=== PATIENT | female | born 1965 | race Caucasian/White ===

== ENCOUNTER 2017-01-07 22:42 | Observation (INO) | payer SELFPAY ==
[2017-01-07] MEDS ORDERED: ASPIRIN 81 MG CHEWABLE TABLET PO ONE (23:02)
[2017-01-07 23:03] LABS: BASO % 0.8 % (0-6); EOS % 2.8 % (0-6); GRAN % 43.7 % (47-80); HEMATOCRIT 40.2 % (35.0-47.0); HEMOGLOBIN 13.4 gm/dl (11.6-16.0); MEAN CELL VOLUME 87.8 fl (81-97); MEAN CORPUSCULAR HEMOGLOBIN 29.3 pg (27-33); MEAN CORPUSCULAR HGB CONC 33.3 g/dl (32-36); MEAN PLATELET VOLUME 9.7 fl (7.4-10.4); MONO % 9.7 % (0-9); PLATELET COUNT 277 K/uL (130-400); RED BLOOD COUNT 4.58 M/uL (3.80-5.40); RED CELL DISTRIBUTION WIDTH 12.5 % (11.5-14.5); WHITE BLOOD COUNT W/O DIFF 6.1 K/uL (4.2-12.2)
[2017-01-07] MEDS: NITROGLYCERIN 0.4MG SL TABLET #25 BTL SL PRN ×3 (23:05→23:15)
[2017-01-07 23:14] LABS: BLOOD UREA NITROGEN 7 mg/dL (7-17); CREATINE PHOSPHOKINASE 132 U/L (30-135); CREATININE 0.7 mg/dL (0.52-1.04); EST GLOMERULAR FILTRATION RATE > 60 ml/min; GLUCOSE,RANDOM 87 mg/dL (70-110)
[2017-01-07 23:17] LABS: INR 0.95; PROTHROMBIN TIME (PATIENT) 10.7 SECONDS (9.5-12.1)
[2017-01-07 23:27] LABS: D-DIMER < 0.19 mg/L FEU (0-0.59); TROPONIN I < 0.012 ng/mL (0.00-0.034)
--- NOTE | 2017-01-07 23:41 | Emergency Department Record ---
History of Present Illness - General Chief Complaint: Chest Pain Stated Complaint: CHEST PAIN Time Seen by Provider: 01/07/17 22:52 Source: Patient Mode of Arrival: Wheelchair Limitations: No limitations - History of Present Illness Initial Comments: pt has had intermittant chest pain for the last weeks and then tonight it became constant. it is 3/10, heavy w tingling in l arm. pt has nausea. it has been constant for 2 hours. pt feels sob. pt has no hx of hi chol, no smoking, no hx htn. pts father had a [place] in his 50s. MD Complaint: Chest pain Onset/Timin -: Hour(s) Onset: During rest Pain Location: Substernal Pain Radiation: None Severity: Mild Severity scale (1-10): 3 Quality: Heaviness Consistency: Constant Improves With: Nothing Worsens With: Nothing Context: Other Anginal Symptoms: Other Treatments Prior to Arrival: None - Related Data Home Medications Medication Instructions Recorded Confirmed Last Taken Escitalopram Oxalate [Lexapro] 10 mg PO DAILY 01/07/17 01/07/17 Unknown Lorazepam [Ativan] 1 mg PO ASDIR 01/07/17 01/07/17 Unknown Allergies Allergy/AdvReac Type Severity Reaction Status Date / Time Sulfa (Sulfonamide Allergy RASH Verified 01/07/17 22:53 Antibiotics) Travel Screening - Travel/Exposure Within Last 30 Days Have you traveled within the last 30 days?: No - Travel/Exposure Within Last Year Have you traveled outside the [place] in the last year?: No - Additonal Travel Details Have you been exposed to anyone with a communicable illness?: No - Travel Symptoms Symptom Screening: None Review of Systems Reviewed: No additional complaints except as noted below Constitutional: Reports: As per HPI. Denies: Chills, Fever, Malaise, Night sweats, Weakness, Weight change Eyes: Reports: As per HPI. Denies: Eye discharge, Eye pain, Photophobia, Vision change ENT: Reports: As per HPI. Denies: Congestion, Dental pain, Ear pain, Epistaxis , Hearing loss, Throat pain Respiratory: Reports: As per HPI. Denies: Cough, Dyspnea, Hemoptysis, Stridor, Wheezes Cardiovascular: Reports: As per HPI. Denies: Arrhythmia, Chest pain, Dyspnea on exertion, Edema, Murmurs, Orthopnea, Palpitations, Paroxysmal nocturnal dyspnea, Rheumatic Fever, Syncope Endocrine: Reports: As per HPI. Denies: Fatigue, Heat or cold intolerance, Polydipsia, Polyuria Gastrointestinal: Reports: As per HPI. Denies: Abdominal pain, Constipation, Diarrhea, Hematemesis, Hematochezia, Melena, Nausea, Vomiting Genitourinary: Reports: As per HPI. Denies: Abnormal menses, Discharge, Dyspareunia, Dysuria, Frequency, Hematuria, Incontinence, Retention, Urgency Musculoskeletal: Reports: As per HPI. Denies: Arthralgia, Back pain, Gout, Joint swelling, Myalgia, Neck pain Skin: Reports: As per HPI. Denies: Bruising, Change in color, Change in hair/ nails, Lesions, Pruritus, Rash Neurological: Reports: As per HPI. Denies: Abnormal gait, Confusion, Headache, Numbness, Paresthesias, Seizure, Tingling, Tremors, Vertigo, Weakness Psychiatric: Reports: As per HPI. Denies: Anxiety, Auditory hallucinations, Depression, Homicidal thoughts, Suicidal thoughts, Visual hallucinations Hematological/Lymphatic: Reports: As per HPI. Denies: Anemia, Blood Clots, Easy bleeding, Easy bruising, Swollen glands Past Medical History - SOCIAL HISTORY Smoking Status: Never smoker Alcohol Use: Occassional Alcohol Use Comment: nightly glass of wine. occ beer Drug Use: None - RESPIRATORY Hx Respiratory Disorders: No - CARDIOVASCULAR Hx Cardio Disorders: No - NEURO Hx Neuro Disorders: No - GI Hx GI Disorders: Yes Comment:: has indegestion feeling every night - Hx Genitourinary Disorders: No - ENDOCRINE Hx Endocrine Disorders: No - MUSCULOSKELETAL Hx Musculoskeletal Disorders: No - PSYCH Hx Psych Problems: No - HEMATOLOGY/ONCOLOGY Hx Hematology/Oncology Disorders: No Family Medical History Any Significant Family History?: Yes Family Hx Comment (NOT TO BE USED IN PLACE OF ITEMS BELOW): father of heart attack age 57. breast ca in the family Physical Exam - General General Appearance: Alert, Oriented x3, Cooperative, Mild distress - Head Head exam: Normal inspection - Eye Eye exam: Normal appearance, PERRL, EOMI Pupils: Normal accommodation - ENT ENT exam: Normal exam, Mucous membranes moist, Normal external ear exam, Normal orophraynx, TM's normal bilaterally Ear exam: Normal external inspection. negative: External canal tenderness Nasal Exam: Normal inspection. negative: Discharge, Sinus tenderness Mouth exam: Normal external inspection, Tongue normal Teeth exam: Normal inspection. negative: Dental caries Throat exam: Normal inspection. negative: Tonsillar erythema, Tonsillar exudate - Neck Neck exam: Normal inspection, Full ROM. negative: Tenderness - Respiratory Respiratory exam: Normal lung sounds bilaterally. negative: Respiratory distress - Cardiovascular Cardiovascular Exam: Regular rate, Normal rhythm, Normal heart sounds - GI/Abdominal GI/Abdominal exam: Soft, Normal bowel sounds. negative: Tenderness - Rectal Rectal exam: Deferred - exam: Deferred - Extremities Extremities exam: Normal inspection, Full ROM, Normal capillary refill. negative: Tenderness - Back Back exam: Reports: Normal inspection, Full ROM. 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 ] Respiratory 18 18 Rate Blood Pressure Blood Pressure 129/77 123/73 [Right Arm] Pulse Ox 98 97 Medical Decision Making - Lab Data Result diagrams: 01/07/17 22:40 01/07/17 22:40 Lab Results 01/07/17 01/07/17 01/07/17 Range/Units 22:40 22:40 22:40 WBC 6.1 (4.2-12.2) K/uL RBC 4.58 (3.80-5.40) M/uL Hgb 13.4 (11.6-16.0) gm/dl Hct 40.2 (35.0-47.0) % MCV 87.8 (81-97) fl MCH 29.3 (27-33) pg MCHC 33.3 (32-36) g/dl RDW 12.5 (11.5-14.5) % Plt Count 277 (130-400) K/uL MPV 9.7 (7.4-10.4) fl Gran % 43.7 L (47-80) % Lymphocytes % 43.0 (16-45) % Monocytes % 9.7 H (0-9) % Eosinophils % 2.8 (0-6) % Basophils % 0.8 (0-6) % PT 10.7 (9.5-12.1) SECONDS INR 0.95 APTT 25.90 (24.5-39.1) SECONDS D-Dimer < 0.19 (0-0.59) mg/L FEU Sodium 143 (136-145) mmol/L Potassium 3.3 L (3.5-5.1) mmol/L Chloride 105 (98-107) mmol/L Carbon Dioxide 29.0 (22-30) mmol/L Anion Gap 9.0 (7-16) BUN 7 (7-17) mg/dL Creatinine 0.7 (0.52-1.04) mg/dL Estimated GFR > 60 ml/min Random Glucose 87 (70-110) mg/dL Calcium 9.9 (8.5-10.1) mg/dL Creatine Kinase 132 (30-135) U/L CK-MB (CK-2) 1.0 (0-6) ug/L Myoglobin 22.5 (0.0-61.5) ng/mL Troponin I < 0.012 (0.00-0.034) ng/mL NT-Pro-B Natriuret Pep 74.90 (<125) pg/mL Disposition Disposition: Admit Clinical Impression: Chest pain Qualifiers: Chest pain type: unspecified Qualified Code(s): R07.9 - Chest pain, unspecified Disposition: Still a Patient at [facility] Decision to Admit: Admit from ER Decision to Admit Date: 01/08/17 Decision to Admit Time: 00:38 Forms: Patient Portal Access
[2017-01-08] MEDS ORDERED: TEMAZEPAM 15 MG CAPSULE PO PRN (01:16)
[2017-01-08] MEDS ORDERED: ACETAMINOPHEN 500 MG TABLET PO PRN (01:16)
[2017-01-08] MEDS ORDERED: LORAZEPAM 1 MG PO SCH (01:16)
[2017-01-08 07:30] LABS: LDL CHOLESTEROL/MEASURED 56.4 mg/dL (0-100)
[2017-01-08] MEDS ORDERED: LORAZEPAM 0.5 MG TABLET PO PRN (08:45)
[2017-01-08] MEDS ORDERED: ESCITALOPRAM 10 MG TABLET PO SCH (10:00)
[2017-01-08] MEDS ORDERED: ASPIRIN 325 MG TAB ENTERIC-COATED PO SCH (10:00)
--- NOTE | 2017-01-08 13:22 | RADIOLOGY REPORT ---
EXAM: CHEST, TWO VIEWS HISTORY: PATIENT HAS CENTRAL CHEST PRESSURE AND LEFT SIDED CHEST PAIN. TECHNIQUE: Two views of the chest were provided without comparison examinations. FINDINGS: The cardiomediastinal silhouette is within normal limits for size and contour. The kaela appear unremarkable. There is no radiographic evidence of a focal infiltrate, pleural effusion, or pneumothorax. COPD changes are identified bilaterally. IMPRESSION: COPD CHANGES ARE IDENTIFIED WITHOUT RADIOGRAPHIC EVIDENCE OF AN ACUTE INTRATHORACIC PROCESS. JOB NUMBER: [id number] MTDD
--- NOTE | 2017-01-08 13:30 | History & Physical ---
History of Present Illness - Date of Service Date of Service for History & Physical: 01/08/17 - History of Present Illness Admitting Diagnosis: chest pain History of Present Illness: 51 y/o female with cc chest pain admitted for chest pain r/o MT. Past medical history includes indigestion and depression. Positive family history of CAD, father at age 53 of MT, mother a few years ago, was terminally ill with breast cancer, mother also had hx HTN. Past Surgical History: laproscopy for ovary, left ovary removal Prior to arrival she experienced mid chest discomfort and pressure, left work early and went home to take Prilosec to treat what she felt was indigestion. reports Prilosec helped some of the the chest pressure initially but over the next hour or so chest pressure and pain worsened, radiated to left jaw and neck , left arm felt tingly. She took her BP at home and reports reading as high as 170/? and came to ED. She reports leads a relatively healthy lifestyle. Has never had an episode of chest pain like this before. Denies panic attacks. Drinks a glass of wine per night and an occasional beer with dinner. Has never smoked. She does report depression as she reports she is " a juggler" of many things, depression got worse after the of her children and divorce from their father. Had a hard time sleeping during end of life process with mother and depends on Ativan at night for sleep. 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 She feels her life has become less stressful as she has returned to her previous routine prior to the of her mother. While in the ED BP elevated but asymptomatic. First set of cardiac enzymes negative. EKG NSR with mild atrial enlargement. CXR negative for acute process, + COPD changes bilaterally. Laboratory Results WBC 6.1 K/uL (4.2-12.2) 01/07/17 22:40 RBC 4.58 M/uL (3.80-5.40) 01/07/17 22:40 Hgb 13.4 gm/dl (11.6-16.0) 01/07/17 22:40 Hct 40.2 % (35.0-47.0) 01/07/17 22:40 MCV 87.8 fl (81-97) 01/07/17 22:40 MCH 29.3 pg (27-33) 01/07/17 22:40 MCHC 33.3 g/dl (32-36) 01/07/17 22:40 RDW 12.5 % (11.5-14.5) 01/07/17 22:40 Plt Count 277 K/uL (130-400) 01/07/17 22:40 MPV 9.7 fl (7.4-10.4) 01/07/17 22:40 Gran % 43.7 % (47-80) L 01/07/17 22:40 Lymphocytes % 43.0 % (16-45) 01/07/17 22:40 Monocytes % 9.7 % (0-9) H 01/07/17 22:40 Eosinophils % 2.8 % (0-6) 01/07/17 22:40 Basophils % 0.8 % (0-6) 01/07/17 22:40 PT 10.7 SECONDS (9.5-12.1) 01/07/17 22:40 INR 0.95 01/07/17 22:40 APTT 25.90 SECONDS (24.5-39.1) 01/07/17 22:40 D-Dimer < 0.19 mg/L FEU (0-0.59) 01/07/17 22:40 Sodium 143 mmol/L (136-145) 01/07/17 22:40 Potassium 3.3 mmol/L (3.5-5.1) L 01/07/17 22:40 Chloride 105 mmol/L (98-107) 01/07/17 22:40 Carbon Dioxide 29.0 mmol/L (22-30) 01/07/17 22:40 Anion Gap 9.0 (7-16) 01/07/17 22:40 BUN 7 mg/dL (7-17) 01/07/17 22:40 Creatinine 0.7 mg/dL (0.52-1.04) 01/07/17 22:40 Estimated GFR > 60 ml/min 01/07/17 22:40 Random Glucose 87 mg/dL (70-110) 01/07/17 22:40 Calcium 9.9 mg/dL (8.5-10.1) 01/07/17 22:40 Creatine Kinase 132 U/L (30-135) 01/07/17 22:40 CK-MB (CK-2) 0.7 ug/L (0-6) 01/08/17 06:54 Myoglobin 22.5 ng/mL (0.0-61.5) 01/07/17 22:40 Troponin I < 0.012 ng/mL (0.00-0.034) 01/08/17 06:54 NT-Pro-B Natriuret Pep 74.90 pg/mL (<125) 01/07/17 22:40 Triglycerides 88 mg/dL (30-200) 01/08/17 06:54 Cholesterol 165 mg/dL (0-200) 01/08/17 06:54 LDL Cholesterol Measurd 56.4 mg/dL (0-100) 01/08/17 06:54 VLDL Cholesterol 17 mg/dL (10.00-40.00) 01/08/17 06:54 HDL Cholesterol 75 mg/dL (40-60) H 01/08/17 06:54 Vital Signs - Last 24 Hrs Temp Pulse Pulse Resp BP BP Pulse Ox 01/08/17 09:00 18 01/08/17 08:00 98.9 F 16 120/67 100 01/08/17 04:00 97.8 F 67 18 140/68 100 01/08/17 01:16 97.8 F 56 L 18 122/64 98 01/08/17 00:20 54 L 20 121/69 100 01/07/17 23:21 63 18 123/73 97 01/07/17 23:15 73 18 129/77 98 01/07/17 23:11 73 18 151/86 97 01/07/17 23:06 73 18 175/96 100 01/07/17 22:44 97.9 F 61 20 185/90 100 01/08/17- resting in bed comfortably. Tearful during visit. Reports chest pain and pressure has resolved, no further left arm tingling or pain. Does report history of TMJ on left side that hurts intermittently. Uses a bite splint at night as she clenches her teeth. Reports she feels the antidepressant medication she takes is "doing the job" and she has what she considers to be good coping mechanisms if she becomes stressed or overwhelmed. PCP: Dr Goodman Travel Screening - Travel/Exposure Within Last 30 Days Have you traveled within the last 30 days?: No - Travel/Exposure Within Last Year Have you traveled outside the [place] in the last year?: No - Additonal Travel Details Have you been exposed to anyone with a communicable illness?: No - Travel Symptoms Symptom Screening: None Review of Systems Constitutional: Reports: As per HPI. Denies: Chills, Fever, Malaise, Night sweats, Weakness, Weight change Eyes: Reports: As per HPI. Denies: Eye discharge, Eye pain, Photophobia, Vision change ENT: Reports: As per HPI. Denies: Congestion, Dental pain, Ear pain, Epistaxis , Hearing loss, Throat pain Respiratory: Reports: As per HPI. Denies: Cough, Dyspnea, Hemoptysis, Stridor, Wheezes Cardiovascular: Reports: As per HPI. Denies: Arrhythmia, Chest pain, Dyspnea on exertion, Edema, Murmurs, Orthopnea, Palpitations, Paroxysmal nocturnal dyspnea, Rheumatic Fever, Syncope Endocrine: Reports: As per HPI. Denies: Fatigue, Heat or cold intolerance, Polydipsia, Polyuria Gastrointestinal: Reports: As per HPI. Denies: Abdominal pain, Constipation, Diarrhea, Hematemesis, Hematochezia, Melena, Nausea, Vomiting Genitourinary: Reports: As per HPI. Denies: Abnormal menses, Discharge, Dyspareunia, Dysuria, Frequency, Hematuria, Incontinence, Retention, Urgency Musculoskeletal: Reports: As per HPI. Denies: Arthralgia, Back pain, Gout, Joint swelling, Myalgia, Neck pain Skin: Reports: As per HPI. Denies: Bruising, Change in color, Change in hair/ nails, Lesions, Pruritus, Rash Neurological: Reports: As per HPI. Denies: Abnormal gait, Confusion, Headache, Numbness, Paresthesias, Seizure, Tingling, Tremors, Vertigo, Weakness Psychiatric: Reports: As per HPI. Denies: Anxiety, Auditory hallucinations, Depression, Homicidal thoughts, Suicidal thoughts, Visual hallucinations Hematological/Lymphatic: Reports: As per HPI. Denies: Anemia, Blood Clots, Easy bleeding, Easy bruising, Swollen glands Past Medical History - SOCIAL HISTORY Smoking Status: Never smoker Alcohol Use: Occassional Alcohol Use Comment: wine daily Drug Use: None - RESPIRATORY Hx Respiratory Disorders: No - CARDIOVASCULAR Hx Cardio Disorders: No - NEURO Hx Neuro Disorders: No - GI Hx GI Disorders: Yes Comment:: has indegestion feeling every night - Hx Genitourinary Disorders: No - ENDOCRINE Hx Endocrine Disorders: No - MUSCULOSKELETAL Hx Musculoskeletal Disorders: No - PSYCH Hx Psych Problems: No - HEMATOLOGY/ONCOLOGY Hx Hematology/Oncology Disorders: No Family Medical History Any Significant Family History?: Yes Family Hx Comment (NOT TO BE USED IN PLACE OF ITEMS BELOW): father of heart attack age 57. breast ca in the family H&P Meds/Allergies - Allergies Allergies: Allergies Allergy/AdvReac Type Severity Reaction Status Date / Time Sulfa (Sulfonamide Allergy RASH Verified 01/07/17 22:53 Antibiotics) - Home Medications Home Medications Medication Instructions Recorded Confirmed Last Taken Escitalopram Oxalate [Lexapro] 10 mg PO DAILY 01/07/17 01/07/17 Unknown Lorazepam [Ativan] 1 mg PO TID PRN 01/07/17 01/08/17 01/06/17 1mg - Active Medications Active Medications: Current Medications Acetaminophen (Tylenol 500mg Tab) 1,000 mg PO Q6H PRN PRN Reason: PAIN/TEMP Aspirin (Ecotrin (Ec)) 325 mg PO DAILY [facility] Last Admin: 01/08/17 09:45 Dose: 325 mg Escitalopram Oxalate (Lexapro) 10 mg PO DAILY [facility] Last Admin: 01/08/17 09:45 Dose: 10 mg Lorazepam (Ativan) 1 mg PO TID PRN PRN Reason: ANXIETY Temazepam (Restoril) 15 mg PO QHS PRN PRN Reason: INSOMNIA Physical Exam - Vital Signs Vital Signs: Vital Signs - Last 24 Hrs Temp Pulse Resp BP Pulse Ox 01/08/17 09:00 18 01/08/17 08:00 98.9 F 16 120/67 100 01/08/17 04:00 97.8 F 67 18 140/68 100 01/08/17 01:16 97.8 F 56 L 18 122/64 98 - General General Appearance: Alert, Oriented x3, Cooperative, No acute distress Limitations: No limitations - Head Head exam: Normal inspection - Eye Eye exam: Normal appearance, PERRL, EOMI Pupils: Normal accommodation - ENT ENT exam: Normal exam, Mucous membranes moist, Normal external ear exam, Normal orophraynx, TM's normal bilaterally Ear exam: Normal external inspection. negative: External canal tenderness Nasal Exam: Normal inspection. negative: Discharge, Sinus tenderness Mouth exam: Normal external inspection, Tongue normal Teeth exam: Normal inspection. negative: Dental caries Throat exam: Normal inspection. negative: Tonsillar erythema, Tonsillar exudate - Neck Neck exam: Normal inspection, Full ROM. negative: Tenderness - Respiratory Respiratory exam: Normal lung sounds bilaterally. negative: Respiratory distress - Cardiovascular Cardiovascular Exam: Regular rate, Normal rhythm, Normal heart sounds - GI/Abdominal GI/Abdominal exam: Soft, Normal bowel sounds. negative: Tenderness - Rectal Rectal exam: Deferred - exam: Deferred - Extremities Extremities exam: Normal inspection, Full ROM, Normal capillary refill. negative: Tenderness - Back Back exam: Reports: Normal inspection, Full ROM. Denies: Muscle spasm, Rash noted, Tenderness - Neurological Neurological exam: Alert, CN II-XII intact, Normal gait, Oriented X3 - Psychiatric Psychiatric exam: Normal affect, Normal mood - Skin Skin exam: Dry, Intact, Normal color, Warm Results - Labs Result Diagrams: 01/07/17 22:40 01/07/17 22:40 Labs Last 24 Hours: Laboratory Results - last 24 hr 01/08/17 01/08/17 01/08/17 06:54 06:54 06:54 CK-MB (CK-2) 0.7 Troponin I < 0.012 Triglycerides 88 Cholesterol 165 LDL Cholesterol Measurd 56.4 VLDL Cholesterol 17 HDL Cholesterol 75 H - Imaging and Cardiology Chest x-ray Status: Report reviewed (1- no acute process 2- COPD changes bilat) VTE H&P Assessment - Risk for VTE Risk for VTE: Yes Risk Level: Low Risk Assessment Date: 01/08/17 Risk Assessment Time: 13:39 VTE Orders Placed or Will Be Placed: Yes Plan - Detailed Diagnosis and Plan (1) Chest pain Current Visit: Yes Status: Acute Qualifiers: Chest pain type: unspecified Qualified Code(s): R07.9 - Chest pain, unspecified Base Code: R07.9 - CHEST PAIN, UNSPECIFIED Comment: 01/08/17- 51 y/o female with no previous cardiac history admitted for chest pain that radiated to left arm and jaw. Cardiac enzymes x 2 negative. EKG NSR with mild atrial enlargement. CXR negative for acute process, COPD changes (asymptomatic) - etiology likely non-cardiac in origin - await cardiology consult - chest pain has resolved since admission - follow up with PCP 1-2 weeks after discharge (2) DVT prophylaxis Current Visit: Yes Status: Acute Base Code: [id number] - Comment: 01/08/17- nursing to encourage frequent ambulation (3) Full code status Current Visit: Yes Status: Acute Base Code: Z78.9 - OTHER SPECIFIED HEALTH STATUS Comment: 01/08/17- will be full code during this hospitalization
--- NOTE | 2017-01-08 16:40 | Discharge Summary ---
Providers Discharge Summary Date: 01/08/17 Date of admission: 01/08/17 01:09 Expected Date of Discharge: 01/08/17 Attending physician: LEANDRO BAXTER Physical Exam - Vital Signs Vital Signs: Vital Signs - Last 24 Hrs Temp Pulse Pulse Resp BP BP Pulse Ox 01/08/17 15:43 98.2 F 59 L 18 136/67 98 01/08/17 09:00 18 01/08/17 08:00 98.9 F 16 120/67 100 01/08/17 04:00 97.8 F 67 18 140/68 100 01/08/17 01:16 97.8 F 56 L 18 122/64 98 - General General Appearance: Alert, Oriented x3, Cooperative, No acute distress Limitations: No limitations - Head Head exam: Normal inspection - Eye Eye exam: Normal appearance, PERRL, EOMI Pupils: Normal accommodation - ENT ENT exam: Normal exam, Mucous membranes moist, Normal external ear exam, Normal orophraynx, TM's normal bilaterally Ear exam: Normal external inspection. negative: External canal tenderness Nasal Exam: Normal inspection. negative: Discharge, Sinus tenderness Mouth exam: Normal external inspection, Tongue normal Teeth exam: Normal inspection. negative: Dental caries Throat exam: Normal inspection. negative: Tonsillar erythema, Tonsillar exudate - Neck Neck exam: Normal inspection, Full ROM. negative: Tenderness - Respiratory Respiratory exam: Normal lung sounds bilaterally. negative: Respiratory distress - Cardiovascular Cardiovascular Exam: Regular rate, Normal rhythm, Normal heart sounds - GI/Abdominal GI/Abdominal exam: Soft, Normal bowel sounds. negative: Tenderness - Rectal Rectal exam: Deferred - exam: Deferred - Extremities Extremities exam: Normal inspection, Full ROM, Normal capillary refill. negative: Tenderness - Back Back exam: Reports: Normal inspection, Full ROM. Denies: Muscle spasm, Rash noted, Tenderness - Neurological Neurological exam: Alert, CN II-XII intact, Normal gait, Oriented X3 - Psychiatric Psychiatric exam: Normal affect, Normal mood - Skin Skin exam: Dry, Intact, Normal color, Warm Hospitalization - Hospitalization Admission Diagnosis: chest pain - Problem List/Discharge Diagnosis (1) Chest pain Current Visit: Yes Status: Acute Discharge Diagnosis: Chest pain type: unspecified Qualified Code(s): R07.9 - Chest pain, unspecified Base Code: R07.9 - CHEST PAIN, UNSPECIFIED Comment: 01/08/17- 51 y/o female with no previous cardiac history admitted for chest pain that radiated to left arm and jaw. Cardiac enzymes x 2 negative. EKG NSR with mild atrial enlargement. CXR negative for acute process, COPD changes (asymptomatic) - etiology likely non-cardiac in origin - cardiology consult complete, will schedule for exercise stress test next week - had one episode of chest tightness just prior to discharge, Ativan given with improvement - Stat EKG at time of chest tightness episode, NSR, possible LVH - follow up with PCP 1-2 weeks after discharge - follow up with Dr Barrett, Cardiology, in 1 week (2) DVT prophylaxis Current Visit: Yes Status: Acute Base Code: [id number] - Comment: 01/08/17- nursing to encourage frequent ambulation (3) Full code status Current Visit: Yes Status: Acute Base Code: Z78.9 - OTHER SPECIFIED HEALTH STATUS Comment: 01/08/17- will be full code during this hospitalization - Hospitalization Course Disposition: Home, Self-Care Procedures: Cardiology Procedures 01/08/17 15:43 EKG NOW Abnormal Labs: Abnormal Lab Results 01/08/17 Range/Units 06:54 HDL Cholesterol 75 H (40-60) mg/dL Condition at Discharge: (2) Stable Discharge Medications - Discharge Medications Home Medications: Ambulatory Orders Escitalopram Oxalate [Lexapro] 10 mg PO DAILY 01/07/17 [Last Taken Unknown] Lorazepam [Ativan] 1 mg PO TID PRN 01/07/17 [Last Taken 01/06/17 1mg] Discharge Plan - Discharge Instructions Activity at Discharge: Resume Usual Activities As Tolerated Diet at Discharge: Regular Diet
--- NOTE | 2017-01-09 16:20 | Medical Records Consult ---
DATE OF CONSULTATION: 01/08/17 HISTORY: Mrs. Farley is 51 years old who presented to [facility] one day prior for substernal chest pressure. She states this occurred approximately 7 p.m. and was persistent for the next 3-4 hours. She then presented to [facility] where initial ECG demonstrated sinus rhythm with normal axis and intervals. Mrs. Farley's only medical history of anxiety/depression. She takes Lexapro and Ativan prn. Mrs. Farley has no history of tobacco use, hypercholesterolemia, hyperlipidemia, or diabetes. Her father had a myocardial infarction in his 50s but was a smoker and heavy drinker. Her mother previously from breast cancer with metastasis. MEDICATIONS: Currently, Ativan 1 mg prn Lexapro 10 mg daily ALLERGIES: NONE. SOCIAL HISTORY: She works as a mental health counselor. She denies tobacco or alcohol use. She has two children. FAMILY HISTORY: Again, father had an VT in his 50s. Mother had metastatic breast cancer before passing away. PHYSICAL EXAM: VITAL SIGNS: She is afebrile. Vital signs are stable. LUNGS: Clear to auscultation. CARDIAC EXAM: Normal. ABDOMEN: Soft. EXTREMITIES: Reveal no edema. LABS: Her white count is 6.1, hemoglobin 13.4, platelets 277,000, sodium 143, potassium 3.3, BUN 7, creatinine 0.7, her troponins were negative x2. Myoglobin was negative. She had a normal BNP. CK-MB x2 were negative. IMPRESSION/PLAN: Mrs. Farley presented to [facility] with atypical chest pain. Her ECG, enzymes, and laboratory profile were within normal limits. She has no significant cardiac risk factors. At this time, her chest pressure is essentially resolved. She will be scheduled for an outpatient exercise stress test and follow-up with ar. If she has any recurrence of her chest pressure, she was also offered to follow-up at our [place] office within the next 24-48 hours. JOB NUMBER: [id number] MTDD
== END 2017-01-08 17:41 | disposition home or self-care (01) ==
LOC: ER 22:42 → MEDSURG 01-08 01:09
PROVIDERS: ADMIT Family Medicine; ATTEND Family Medicine
DX: R07.9 Chest pain, unspecified (principal); Z78.9 Other specified health status
CPT/HCPCS: 71020; 80048; 80061; 82550; 82553; 83874; 83880; 84443; 84484; 85025; 85379; 85610; 85730; 93005; 93010; 96361; 99236; 99285